=== PATIENT | male | born 1970 | race Caucasian/White ===

== ENCOUNTER 2016-10-26 20:52 | Emergency (ER) | payer OTHER ==
[~2016-10-26] VITALS: Ht 180.3 cm; Wt 126.7 kg
[~2016-10-26 20:52] MED LIST: ACET-2321 PO; AMOX875T2 PO; CIPR7.5D EACH EAR; DIPH25CA84 PO; LISI1TAB13
--- OUTSIDE RECORDS SUMMARY | 2016-10-26 20:56 | XMS REPORT | Continuity of Care Document ---
Author Author [facility] Organization [facility] Address Unknown Phone Unavailable Support Name Relationship Address Phone NYDIAJOSESITO CAMACHO APRN Caregiver [address] [place] [address] [place] [address] Unavailable JER BOURNE Next Of Kin [address] [phone] Insurance Providers Guarantor Lucy Bourne Address [address] [address] [place] [address] Email [email or web address] Payer [employer] Policy Number [id number] Subscriber's Name Lucy Bourne Delia Relationship 18 Self Group Number [id number] Chief Complaint and Reason for Visit Chief Complaint Throat Pain/Injury Reason for Visit [id number] Cough [id number] Pharyngitis Problems Active Problems Medical Problem Onset Date Status Atypical chest pain Unknown Acute Atypical chest pain Unknown Acute Costochondritis Unknown Acute Past Problems Medical Problem Onset Date Bilateral nonsuppurative otitis media Unknown Bilateral otitis externa Unknown Cough Unknown HTN (hypertension) Unknown Pharyngitis Unknown Medications Current Home Medications Medication Dose Units Route Directions Days Qty Instructions Start Date Acetaminophen (Tylenol) 325 Mg Tablet 1 Tab Oral Every 4 Hours Prn 30 Tablet 06/25/16 Amoxicillin 875 Mg Tablet 1 Tab Oral Every 12 Hours 10 Days 20 Tablet 06/25/16 Ciprofloxacin Hcl/Dexameth (Ciprodex Otic Suspension) 75 Drop/7.5 Ml Bottle 4 Drop Each Ear Twice A Day 7 Days 1 Bottle 06/25/16 Diphenhydramine Hcl (Benadryl) 25 Mg Capsule 1 Cap Oral Bedtime 30 Capsule 06/25/16 Lisinopril/Hydrochlorothiazide (Lisinopril-Hctz 20-25 Mg Tab) 1 Each Tablet 01/24/14 Social History Social History Problem Response Recorded Date/Time Onset Date Status Hx Alcohol Use Yes 01/24/2014 2:31am Not Applicable Not Applicable Tobacco Usage smoke 01/05/2014 11:30pm Not Applicable Not Applicable Hospital Discharge Instructions No hospital discharge instructions. Plan of Care Discharge Date 06/25/16 7:10pm Disposition 01 DISCHARGED HOME, SELF-CARE Condition at Discharge Stable Prescriptions See Medication Section Additional Instructions/Education Clinical examination does not suggest sinusitis, pneumonia, meningitis or streptococcal pharyngitis. Increase fluid intake. Enc good handwashing. Recommend OTC Mucinex DM, Afrin nasal spray (for no more than 5 days), per package instructions as need for cough/congestion. Recommend salt water gargles, Chloraseptic spray, throat lozenges for sore throat as needed. Saline nasal rinses may be beneficial 2 x a day. Recommend OTC Tylenol and/or Ibuprofen per package instructions as needed for fever, pain, and body aches. No aspirin. I do not feel that any further extensive workup is indicated. However the patient is counseled that should new symptoms develop or the symptoms worsen, further evaluation and testing may be warranted as those symptoms declare themselves and that followup is of vital importance. Symptoms should improve over the next 1-2 weeks. If symptoms get worse, spikes fever, inc cough or shortness of breath please follow up with primary care office or return to convenient care/ER for further evaluation. Discussed with patient diagnoses of hypertension and important thing on medications with routine follow-up. Refill provided for lisinopril/hydrochlorothiazide for 1 week. Information provided for him for local clinics and health ministries. He needs follow-up within the next 7 days. discussed and encouraged smoking cessation. Vital signs rechecked prior to her true blood pressure 151/102. SaO2 96%. Pulse 97. He is in no distress. Questions and concerns answered. Functional Status No functional status results. Allergies, Adverse Reactions, Alerts No known allergies. Immunizations No immunization records. Vital Signs Acute Vital Signs Vital Response Date/Time Temperature (Fahrenheit) 97.5 deg F (96.8 - 99.1) 06/25/2016 6:35pm Temperature (Calculated Celsius) 36.16216 degrees C (36.0 - 37.3) 06/25/2016 6:35pm Pulse Rate (adult) 96 bpm (60 - 100) 06/25/2016 6:50pm Respiratory Rate 24 breaths/min (10 - 20) 06/25/2016 6:35pm O2 Sat by Pulse Oximetry 97 % (90 - 100) 06/25/2016 6:35pm Blood Pressure 158/104 mm Hg 06/25/2016 6:50pm Height (Inches) 68.00 inches 06/25/2016 6:35pm Weight (Kilograms) 134.100 kg 06/25/2016 6:35pm Body Mass Index (BMI) 44.0 06/25/2016 6:35pm Results No known relevant diagnostic tests, laboratory data and/or discharge summary. Procedures No known history of procedures. Encounters Encounter Location Arrival/Admit Date Discharge/Depart Date Attending Provider Departed Emergency Room [facility] 06/25/16 6:27pm 06/25/16 7: 10pm JOSESITO STAFFORD APRN Recent Diagnosis
--- OUTSIDE RECORDS SUMMARY | 2016-10-26 20:56 | XMS REPORT | Continuity of Care Document ---
Author Author [facility] Organization [facility] Address Unknown Phone Unavailable Allergies Active Description Code Type Severity Reaction Onset Reported/Identified Relationship to Patient Clinical Status Yes No Known Food Allergies Food Allergy 10/11/2012 Yes No Known Food Allergies Food Allergy N/A N/A 09/04/2013 Medications Problems Date Dx Coded Attending Type Code Diagnosis Diagnosed By 08/24/2012 Dom Montilla MD Final 305.1 TOBACCO USE DISORDER 08/24/2012 Dom Montilla MD Final 380.10 INF OTITIS EXTERNA NOS 08/24/2012 Dom Montilla MD Final 382.9 OTITIS MEDIA NOS 08/24/2012 Dom Montilla MD Admitting 388.70 OTALGIA NOS 08/24/2012 Dom Montilla MD Final 401.9 HYPERTENSION NOS 09/30/2012 Shaw Smith DO Final 305.1 TOBACCO USE DISORDER 09/30/2012 Shaw Smith DO Final 338.19 ACUTE PAIN NEC 09/30/2012 Shaw Smith DO Final 401.9 HYPERTENSION NOS 09/30/2012 Shaw Smith DO Final 786.50 CHEST PAIN NOS 10/11/2012 Torey Latham MD Final 272.4 HYPERLIPIDEMIA NEC NOS 10/11/2012 Torey Latham MD Final 305.1 TOBACCO USE DISORDER 10/11/2012 Torey Latham MD Final 401.9 HYPERTENSION NOS 10/11/2012 Torey Latham MD Final 414.01 COR -QAWALANGIN VESSEL 10/11/2012 Torey Latham MD Admitting 786.50 CHEST PAIN NOS 10/11/2012 Torey Latham MD Final 786.59 CHEST PAIN NEC 09/04/2013 Torey Latham MD Final 305.1 TOBACCO USE DISORDER 09/04/2013 Torey Latham MD Final 401.9 HYPERTENSION NOS 09/04/2013 Torey Latham MD Final 429.9 HEART DISEASE NOS 09/04/2013 Torey Latham MD Final 786.50 CHEST PAIN NOS 09/04/2013 Torey Latham MD Admitting 786.59 CHEST PAIN NEC Procedures Results Encounters ACCT No. Visit Date/Time Discharge Status Pt. Type Provider Facility Loc./Unit Complaint [id number] 09/04/2013 18:18:00 2013 19:34:00 DIS Emergency Torey Latham MD [facility] [id number] 10/11/2012 23:45:00 2012 20:07:00 DIS Outpatient Torey Latham MD [facility] F4SE [id number] 09/30/2012 00:39:00 2012 01:55:00 DIS Emergency Shaw Smith DO [facility] [id number] 08/24/2012 10:32:00 2012 12:05:00 DIS Emergency Dom Montilla MD [facility] [place]
--- OUTSIDE RECORDS SUMMARY | 2016-10-26 20:56 | XMS REPORT | Continuity of Care Document ---
Author Author [facility] Organization [facility] Address Unknown Phone Unavailable Support Name Relationship Address Phone LUCY TRIMBLE MD Caregiver [address] [place] [address] Unavailable STEFFENJER Next Of Kin [address] [address] Insurance Providers Payer Name Policy Number Subscriber Name Relationship Self Pay Lucy Bourne 18 Self Problems Medical Problems Problem Onset Date Status Atypical chest pain Unknown Active Costochondritis Unknown Active Atypical chest pain Unknown Active Medications Medication Dose Route Sig Days/Qty Instructions Order Date Discontinued Date Status Omeprazole Magnesium 01/24/14 Active Lisinopril/Hydrochlorothiazide 01/24/14 Active Famotidine 40 Mg PO DAILY 60 Qty 01/24/14 Active Social History Social History Problem Response Recorded Date/Time Smoking Status Current every day smoker 01/24/2014 2:31am Hx Alcohol Use Yes 01/24/2014 2:31am Hospital Discharge Instructions No hospital discharge instructions. Plan of Care No plan of care. Functional Status Query Response Date Recorded Physical Hygiene Self January 24, 2014 2:31am Disabilities None January 24, 2014 2:31am Devices Used None January 24, 2014 2:31am Dressing Self January 24, 2014 2:31am Ambulation Self January 24, 2014 2:31am Diet Self January 24, 2014 2:31am Mental Status Alert January 24, 2014 3:43am Disabilities None January 24, 2014 2:31am Devices Used None January 24, 2014 2:31am Physical Hygiene Self January 24, 2014 2:31am Dressing Self January 24, 2014 2:31am Ambulation Self January 24, 2014 2:31am Diet Self January 24, 2014 2:31am Allergies, Adverse Reactions, Alerts Allergen Type Severity Reaction Status Last Updated No Known Allergies Active 01/24/14 Immunizations No immunization records. Vital Signs Acute Vital Signs Vital Response Date/Time Temperature (Fahrenheit) 97.4 deg F (96.8 - 99.1) Temperature (Calculated Celsius) 36.59554 degrees C (36.0 - 37.3) Pulse Rate (adult) 90 bpm (60 - 100) Respiratory Rate 20 breaths/min (10 - 20) O2 Sat by Pulse Oximetry 96 % (90 - 100) Blood Pressure 147/98 mm Hg Height 5 ft 11 in Weight 240 lb Body Mass Index 33.0 kg/m^2 Results Test Source Date Result Interp. Ref. Range Comments Alanine Aminotransferase (ALT/SGPT) January 24, 2014 2:20am 39 U/L N 21- 72 Albumin January 24, 2014 2:20am 4.4 G/DL N 3.5-5.0 Albumin/Globulin Ratio January 24, 2014 2:20am 1.3 RATIO N 1.1-2.2 Alkaline Phosphatase January 24, 2014 2:20am 107 U/L N 38-126 Anion Gap January 24, 2014 2:20am 16 MEQ/L H 5-15 Aspartate Amino Transf (AST/SGOT) January 24, 2014 2:20am 25 U/L N 17-59 BUN/Creatinine Ratio January 24, 2014 2:20am 15 RATIO N 6-26 Band Neutrophils # January 05, 2014 10:45pm 0.1 T/MM3 - Band Neutrophils % January 05, 2014 10:45pm 1.0 % N 0-6 Basophils # (Manual) January 24, 2014 2:20am 0.1 T/MM3 N 0-0.2 Basophils % (Manual) January 24, 2014 2:20am 1.0 % N 0-2 Blood Urea Nitrogen January 24, 2014 2:20am 15.0 MG/DL N 9-20 Calcium Level January 24, 2014 2:20am 9.3 MG/DL N 8.4-10.2 Calculated Osmolality January 24, 2014 2:20am 280 MOSM/KG N 261-280 Carbon Dioxide Level January 24, 2014 2:20am 25 MEQ/L N 22-30 Chloride Level January 24, 2014 2:20am 104 MEQ/L N 98-107 Creatinine January 24, 2014 2:20am 1.0 MG/DL N 0.8-1.5 Eosinophils # (Manual) January 05, 2014 10:45pm 0.3 T/MM3 N 0-0.5 Eosinophils % (Manual) January 05, 2014 10:45pm 2.0 % N 0-4 Globulin January 24, 2014 2:20am 3.3 G/DL N 2.4-3.6 Glucose Level January 24, 2014 2:20am 92 MG/DL N 75-110 Hematocrit January 24, 2014 2:20am 47.5 % N 41-53 Hemoglobin January 24, 2014 2:20am 16.1 GM/DL N 13.5-17.5 Lipase January 24, 2014 2:20am 75 U/L N 23-300 Lymphocytes # (Manual) January 24, 2014 2:20am 3.4 T/MM3 N 1-4.8 Lymphocytes % (Manual) January 24, 2014 2:20am 25.0 % N 23-45 Mean Corpuscular Hemoglobin January 24, 2014 2:20am 31.1 UUG N 26-34 Mean Corpuscular Hemoglobin Concent January 24, 2014 2:20am 33.9 GM/DL N 31-37 Mean Corpuscular Volume January 24, 2014 2:20am 91.9 UM3 N 80-100 Mean Platelet Volume January 24, 2014 2:20am 11.1 UM3 N 9.4-12.4 Monocytes # (Manual) January 24, 2014 2:20am 0.1 T/MM3 N 0-0.8 Monocytes % (Manual) January 24, 2014 2:20am 1.0 % N 0-9.0 Neutrophils # (Manual) January 24, 2014 2:20am 9.5 T/MM3 H 1.8-7.7 Neutrophils % (Manual) January 24, 2014 2:20am 69.0 % H 33-66 Platelet Count January 24, 2014 2:20am 330 T/MM3 N 130-400 Potassium Level January 24, 2014 2:20am 3.8 MEQ/L N 3.6-5 RDW Standard Deviation January 24, 2014 2:20am 42.6 FL N 36.9-50.2 Red Blood Count January 24, 2014 2:20am 5.17 M/MM3 N 4.50-5.90 Sodium Level January 24, 2014 2:20am 145 MEQ/L H 134-144 Total Bilirubin January 24, 2014 2:20am 0.20 MG/DL N 0.20-1.30 Total Protein January 24, 2014 2:20am 7.7 G/DL N 6.3-8.2 Troponin I January 24, 2014 2:20am < 0.012 ng/ml 0-0.12 White Blood Count January 24, 2014 2:20am 13.7 T/MM3 H 4.5-11.0 Chemistry Specimen Hemolysis January 24, 2014 2:20am < 15 0-25 0-25: No Hemolysis.26-70: Slight Hemolysis - can falsely elevate K and Urine Protein. 71-285: Moderate Hemolysis - can falsely elevate K, Troponin I, CA 19-9, PTH, CSF GLucose, and Urine Protein, and can falsely decrease Phenytoin. 286-999: Gross Hemolysis - can falsely elevate K, Troponin I, CA 19-9, PTH, CSF Glucose, and Urine Protine, and can falsely decrease Phenytoin. Recommend specimen recollection. Turbidity January 24, 2014 2:20am < 20 0-20 Reactive Lymphocytes % January 24, 2014 2:20am 4.0 % H 0-0 Glomerular Filtration Rate Calc January 24, 2014 2:20am 82 - Reactive Lymphocytes # January 24, 2014 2:20am 0.5 T/MM3 H 0-0 Icterus Index January 24, 2014 2:20am < 2 0-7 Name: LUCY BOURNE Unit #: [id number] : 1970 Sex: M Loc / Svc: ED DOS: 01/05/14 Signed Report #: [id number] DIAGNOSTIC IMAGING REPORT TYPE OF EXAM: CT CERVICAL SPINE W/O CONTRAST Dictated By: TIKA KEENAN MD INDICATION: ITS.REASON: FALL, MIDLINE NECK PAIN CT CERVICAL SPINE W/O CONTRAST: Comparison: None Technique: Axial CT images through the cervical spine were performed without contrast. Coronal and sagittal reformatted images were also obtained. FINDINGS: The alignment of the cervical spine is normal. There is no evidence of acute fracture or subluxation of the cervical spine. The facet joints are well aligned with preservation of the intervertebral disk and facet joints. The atlantoaxial articulation, dens, and upper cervical spine demonstrate no subluxation. There is no evidence of significant spinal stenosis , foraminal compromise, or significant disk herniation. The paraspinal soft tissues and spinal canal appear unremarkable. Mastoid fluid. IMPRESSION: No acute traumatic abnormality of the cervical spine. There is a preliminary report by virtual radiologic. . Procedures Procedure Status Date Provider(s) THER/PROPH/DIAG INJ IV PUSH completed 01/05/14 LUCY TRIMBLE MD Encounters Encounter Location Date/Time Departed Emergency Room [facility] 01/24/14 2:31am Departed Emergency Room [facility] 01/05/14 10:57pm Recent Diagnosis
--- OUTSIDE RECORDS SUMMARY | 2016-10-26 20:56 | XMS REPORT | Continuity of Care Document ---
Author Author [facility] Organization [facility] Address Unknown Phone Unavailable Support Name Relationship Address Phone JUAN TRIMBLE MD Caregiver [address] [place] [address] Unavailable BOURNEJER RAPP Next Of Kin [address] [address] Insurance Providers Payer Name Policy Number Subscriber Name Relationship Self Pay Juan Bourne 18 Self Problems Medical Problems Problem Onset Date Status Atypical chest pain Unknown Active Costochondritis Unknown Active Medications No known medications. Social History Social History Problem Response Recorded Date/Time Smoking Status Current every day smoker 01/05/2014 11:01pm Hospital Discharge Instructions No hospital discharge instructions. Plan of Care No plan of care. Functional Status Query Response Date Recorded Physical Hygiene Self January 05, 2014 11:01pm Disabilities None January 05, 2014 11:01pm Devices Used None January 05, 2014 11:01pm Dressing Self January 05, 2014 11:01pm Ambulation Self January 05, 2014 11:01pm Diet Self January 05, 2014 11:01pm Mental Status Alert January 06, 2014 12:41am Disabilities None January 05, 2014 11:01pm Devices Used None January 05, 2014 11:01pm Physical Hygiene Self January 05, 2014 11:01pm Dressing Self January 05, 2014 11:01pm Ambulation Self January 05, 2014 11:01pm Diet Self January 05, 2014 11:01pm Allergies, Adverse Reactions, Alerts No known allergies. Immunizations No immunization records. Vital Signs Acute Vital Signs Vital Response Date/Time Temperature (Fahrenheit) 98.0 deg F (96.8 - 99.1) Temperature (Calculated Celsius) 36.00841 degrees C (36.0 - 37.3) Pulse Rate (adult) 86 bpm (60 - 100) Respiratory Rate 19 breaths/min (10 - 20) O2 Sat by Pulse Oximetry 97 % (90 - 100) Blood Pressure 124/86 mm Hg Height 5 ft 11 in Weight 272 lb Body Mass Index 38.0 kg/m^2 Results Test Source Date Result Interp. Ref. Range Comments Alanine Aminotransferase (ALT/SGPT) January 05, 2014 10:45pm 35 U/L N 21- 72 Albumin January 05, 2014 10:45pm 3.7 G/DL N 3.5-5.0 Albumin/Globulin Ratio January 05, 2014 10:45pm 1.2 RATIO N 1.1-2.2 Alkaline Phosphatase January 05, 2014 10:45pm 94 U/L N 38-126 Anion Gap January 05, 2014 10:45pm 12 MEQ/L N 5-15 Aspartate Amino Transf (AST/SGOT) January 05, 2014 10:45pm 22 U/L N 17-59 BUN/Creatinine Ratio January 05, 2014 10:45pm 13 RATIO N 6-26 Band Neutrophils # January 05, 2014 10:45pm 0.1 T/MM3 - Band Neutrophils % January 05, 2014 10:45pm 1.0 % N 0-6 Blood Urea Nitrogen January 05, 2014 10:45pm 10.0 MG/DL N 9-20 Calcium Level January 05, 2014 10:45pm 9.0 MG/DL N 8.4-10.2 Calculated Osmolality January 05, 2014 10:45pm 274 MOSM/KG N 261-280 Carbon Dioxide Level January 05, 2014 10:45pm 25 MEQ/L N 22-30 Chloride Level January 05, 2014 10:45pm 105 MEQ/L N 98-107 Creatinine January 05, 2014 10:45pm 0.8 MG/DL N 0.8-1.5 Eosinophils # (Manual) January 05, 2014 10:45pm 0.3 T/MM3 N 0-0.5 Eosinophils % (Manual) January 05, 2014 10:45pm 2.0 % N 0-4 Globulin January 05, 2014 10:45pm 3.2 G/DL N 2.4-3.6 Glucose Level January 05, 2014 10:45pm 128 MG/DL H 75-110 Hematocrit January 05, 2014 10:45pm 45.4 % N 41-53 Hemoglobin January 05, 2014 10:45pm 15.1 GM/DL N 13.5-17.5 Lipase January 05, 2014 10:45pm 78 U/L N 23-300 Lymphocytes # (Manual) January 05, 2014 10:45pm 3.3 T/MM3 N 1-4.8 Lymphocytes % (Manual) January 05, 2014 10:45pm 26.0 % N 23-45 Mean Corpuscular Hemoglobin January 05, 2014 10:45pm 30.6 UUG N 26-34 Mean Corpuscular Hemoglobin Concent January 05, 2014 10:45pm 33.3 GM/DL N 31-37 Mean Corpuscular Volume January 05, 2014 10:45pm 91.9 UM3 N 80-100 Mean Platelet Volume January 05, 2014 10:45pm 10.8 UM3 N 9.4-12.4 Monocytes # (Manual) January 05, 2014 10:45pm 0.9 T/MM3 H 0-0.8 Monocytes % (Manual) January 05, 2014 10:45pm 7.0 % N 0-9.0 Neutrophils # (Manual) January 05, 2014 10:45pm 8.1 T/MM3 H 1.8-7.7 Neutrophils % (Manual) January 05, 2014 10:45pm 64.0 % N 33-66 Platelet Count January 05, 2014 10:45pm 320 T/MM3 N 130-400 Potassium Level January 05, 2014 10:45pm 3.5 MEQ/L L 3.6-5 RDW Standard Deviation January 05, 2014 10:45pm 43.5 FL N 36.9-50.2 Red Blood Count January 05, 2014 10:45pm 4.94 M/MM3 N 4.50-5.90 Sodium Level January 05, 2014 10:45pm 142 MEQ/L N 134-144 Total Bilirubin January 05, 2014 10:45pm 0.10 MG/DL L 0.20-1.30 Total Protein January 05, 2014 10:45pm 6.9 G/DL N 6.3-8.2 Troponin I January 05, 2014 10:45pm < 0.012 ng/ml 0-0.12 White Blood Count January 05, 2014 10:45pm 12.6 T/MM3 H 4.5-11.0 Chemistry Specimen Hemolysis January 05, 2014 10:45pm < 15 0-25 0-25: No Hemolysis.26-70: Slight [...] decrease Phenytoin. Recommend specimen recollection. Turbidity January 05, 2014 10:45pm < 20 0-20 Glomerular Filtration Rate Calc January 05, 2014 10:45pm 106 - Icterus Index January 05, 2014 10:45pm < 2 0-7 Procedures No known history of procedures. Encounters Encounter Location Date/Time Departed Emergency Room [facility] 01/05/14 10:57pm Recent Diagnosis
--- OUTSIDE RECORDS SUMMARY | 2016-10-26 20:56 | XMS REPORT ---
Author Author [facility] Organization Unknown Address Unknown Phone Unavailable Allergies, Adverse Reactions, Alerts * No Latex Allergy. * No IV Contrast Allergy. * No Known Food Allergies. Problems No relevant problems exist. Procedures No Procedures Documented. Medication Medication reconciliation has not been performed. Results LAB--CHEMISTRY from 09/30/2012 12:47 AMAnion Gap 7 (3-20 ) Albumin 3.3 g/dL L (3.5-4.8 g/dL) Alkaline Phosphatase 73 U/L (26-104 U/L) ALT (SGPT) 21 U/L (17-63 U/L) AST (SGOT) 15 U/L (15-41 U/L) Bilirubin Total 0.7 mg/dL (0.2-1.2 mg/dL) BUN 9 mg/dL (4-20 mg/dL) Calcium 8.8 mg/dL (8.6-10.0 mg/dL) Chloride 105 mEq/L (99-109 mEq/L) CO2 26 mEq/L (22-32 mEq/L) Creatinine 1.06 mg/dL (0.64-1.27 mg/dL) eGFR >60 (>60- ) Globulin 3.4 g/dL (1.9-4.3 g/dL) Glucose 110 mg/dL H (70-100 mg/dL) Potassium 3.9 mEq/L (3.6-5.1 mEq/L) Sodium 138 mEq/L (136-144 mEq/L) Protein 6.7 g/dL (6.1-7.9 g/dL) Troponin <0.06 ng/mL (-<0.06 ng/mL) LAB--HEMATOLOGY from 09/30/2012 12:47 AMAbsolute Basophils 0.07 THOUS (0.00-0.20 THOUS) Absolute Eosinophils 0.29 THOUS (0.00-0.50 THOUS) Absolute Lymphocytes 3.86 THOUS H (0.80-3.30 THOUS) Absolute Monocytes 1.11 THOUS H (0.30-1.00 THOUS) Absolute Neutrophils 8.63 THOUS H (1.90-7.00 THOUS) HCT 47.6 % (42.0-52.0 %) HGB 16.1 g/dl (14.0-18.0 g/dl) MCH 31.0 pg (27.0-32.0 pg) MCHC 33.8 g/dL (32.0-36.0 g/dL) MCV 91.5 fL (82.0-99.0 fL) MPV 10.9 fL (9.4-12.3 fL) Platelet Count 311 K/uL (150-400 K/uL) RBC 5.20 M/uL (4.60-6.20 M/uL) RDW 12.5 % (11.5-14.5 %) WBC 14.0 K/uL H (4.8-10.8 K/uL) Basophils 1 % (0-2 %) Eosinophils 2 % (0-4 %) Immature Granulocytes 0.4 % (0.0-1.0 %) Lymphocytes 28 % (20-46 %) Monocytes 8 % (4-11 %) Nucleated RBC Automated 0.0 /100 WBC (0 /100 WBC) Differential Scanned Slide Neutrophils 62 % (51-75 %)
[2016-10-26 21:35] VITALS: Ht 180.3 cm; Wt 126.7 kg
--- NOTE | 2016-10-26 21:53 | NUR ---
STATUS PT IS BROUGHT BACK IN ROOM. PT IS ABLE TO TRANSFER FROM W/C TO CART BY HIMSELF
--- OUTSIDE RECORDS SUMMARY | 2016-10-26 22:02 | XMS REPORT | CCD ---
Author Author [facility], [facility] Organization Unknown Address Unknown Phone Unavailable [...]
--- OUTSIDE RECORDS SUMMARY | 2016-10-26 22:02 | XMS REPORT | Continuity of Care Document ---
Author Author [facility] Organization [facility] Address Unknown Phone Unavailable Allergies Active Description [...] 10/11/2012 Torey Latham MD Final 414.01 COR -CHILKAT VESSEL 10/11/2012 Torey Latham MD Admitting 786.50 [...] Status Pt. Type Provider Facility Loc./Unit Complaint [id number] 09/04/2013 18:18:00 2013 19:34:00 DIS Emergency Torey Latham MD [facility] [id number] 10/11/2012 23:45:00 2012 20:07:00 DIS Outpatient Torey Latham MD [facility] F4SE [id number] 09/30/2012 00:39:00 2012 01:55:00 DIS Emergency Shaw Smith DO [facility] [id number] 08/24/2012 10:32:00 2012 12:05:00 DIS Emergency Dom Montilla MD [facility] [place]
--- OUTSIDE RECORDS SUMMARY | 2016-10-26 22:02 | XMS REPORT | Continuity of Care Document ---
Author Author [facility] Organization [facility] Address Unknown Phone Unavailable Support Name Relationship Address Phone JUAN TRIMBLE MD Caregiver [address] [place] [address] Unavailable BOURNEJER RAPP Next Of Kin [address] [address] Insurance Providers Payer Name Policy Number Subscriber [...] F (96.8 - 99.1) Temperature (Calculated Celsius) 36.87496 degrees C (36.0 - 37.3) Pulse Rate [...] Encounters Encounter Location Date/Time Departed Emergency Room [facility] 01/05/14 10:57pm Recent Diagnosis
--- OUTSIDE RECORDS SUMMARY | 2016-10-26 22:02 | XMS REPORT | Continuity of Care Document ---
Author Author [facility] Organization [facility] Address Unknown Phone Unavailable Support Name Relationship Address Phone LUCY TRIMBLE MD Caregiver [address] [place] [address] Unavailable STEFFENJER Next Of Kin [address] [address] Insurance Providers Payer Name Policy Number Subscriber [...] F (96.8 - 99.1) Temperature (Calculated Celsius) 36.34188 degrees C (36.0 - 37.3) Pulse Rate [...] 2 0-7 Name: LUCY BOURNE Unit #: [id number] : 1970 Sex: M Loc / Svc: ED DOS: 01/05/14 Signed Report #: [id number] DIAGNOSTIC IMAGING REPORT TYPE OF EXAM: CT [...] Encounters Encounter Location Date/Time Departed Emergency Room [facility] 01/24/14 2:31am Departed Emergency Room [facility] 01/05/14 10:57pm Recent Diagnosis
[2016-10-26 22:37] LABS: BASOPHILS # (AUTO) 0.1 T/MM3 (0-0.2); BASOPHILS % (AUTO) 0.6 % (0-2); EOSINOPHILS # (AUTO) 0.3 T/MM3 (0-0.5); EOSINOPHILS % (AUTO) 2.4 % (0-4); HCT - HEMATOCRIT 45.6 % (41-53); HGB - HEMOGLOBIN 15.2 GM/DL (13.5-17.5); IMMATURE GRANULOCYTE # (AUTO) 0.03 T/MM3 (0.00-0.03); IMMATURE GRANULOCYTE % (AUTO) 0.3 % (0.0-0.5); LYMPHOCYTES # (AUTO) 3.5 T/MM3 (1-4.8); LYMPHOCYTES % (AUTO) 30.7 % (23-45); MEAN CORPUSCULAR HGB CONC(MCHC 33.3 GM/DL (31-37); MEAN CORPUSCULAR VOLUME 90.1 UM3 (80-100); MEAN PLATELET VOLUME 10.5 UM3 (9.4-12.4); MONOCYTES % (AUTO) 8.6 % (0-9.0); NEUTROPHILS #(AUTO)-ABSOLUTE 6.4 T/MM3 (1.8-7.7); NEUTROPHILS % (AUTO) 57.4 % (33-66); RED BLOOD COUNT 5.06 M/MM3 (4.50-5.90); WBC - WHITE BLOOD COUNT 11.2 T/MM3 (4.5-11.0)
[2016-10-26 22:45] LABS: ALBUMIN 4.4 G/DL (3.5-5.0); ALBUMIN/GLOBULIN RATIO 1.4 RATIO (1.1-2.2); ALKALINE PHOSPHATASE 90 U/L (38-126); ALT (SGPT) 55 U/L (21-72); ANION GAP 16 MEQ/L (5-15); AST (SGOT) 24 U/L (17-59); BUN/CREATININE RATIO 9 RATIO (6-26); CALCIUM 9.2 MG/DL (8.4-10.2); CHLORIDE 103 MEQ/L (98-107); CO2 - CARBON DIOXIDE 28 MEQ/L (22-30); CREATININE 0.9 MG/DL (0.8-1.5); GLOMERULAR FILTRATION RATE 91; GLUCOSE 95 MG/DL (75-110); LIPASE 65 U/L (23-300); SODIUM 147 MEQ/L (134-144); TOTAL PROTEIN 7.6 G/DL (6.3-8.2)
--- NOTE | 2016-10-26 22:58 | NUR ---
CT Patient out to CT
--- NOTE | 2016-10-26 23:15 | NUR ---
CT Patient returns
[2016-10-26] MEDS ORDERED: NORMAL SALINE 1,000 ML IV ONE (23:30)
[2016-10-26 23:53] LABS: BLOOD, URINE NEGATIVE (NEGATIVE); COLOR,URINE YELLOW (YELLOW); LEUKOCYTE ESTERASE ,URINE NEGATIVE (NEGATIVE); NITRITE,URINE NEGATIVE (NEGATIVE); UROBILINOGEN,URINE 0.2 EU/DL (NORMAL)
[2016-10-26] MEDS ORDERED: HYDR-4246 PO (23:58)
[2016-10-26] MEDS ORDERED: CYCL-375 PO (23:58)
--- NOTE | 2016-10-26 23:58 | ERPDOC ---
Departure Disposition Decision Date: October 26, 2016 Disposition Decision Time: 23:40 Disposition: 01 DISCHARGED HOME, SELF-CARE Impression Impression Impression: Primary Impression: Back pain Back pain location: back pain in unspecified location Chronicity: chronic Back pain laterality: right Qualified Codes: G89.29 - Other chronic pain; M54.9 - Dorsalgia, unspecified Severity: Mild Condition: Improved Seen By: Physician only Referrals: YOON FISHER MD (Family) 2 Days Patient Instructions: Back Pain (ED) Problems/Meds/Labs Reviewed?: Yes Medications reviewed and manag: Yes Follow up care ordered?: Yes Mental Status: Alert, Oriented Scripts Cyclobenzaprine HCl (Cyclobenzaprine HCl) 10 Mg Tablet 10 MG PO TID Y for MUSCLE SPASM for 5 Days, #15 TAB 0 Refills Prov: SHAHLA MOCK DO 10/26/16 Hydrocodone/Acetaminophen ([place] 5-325 Tablet) 5-325 Tablet 1 TAB PO Q4HR Y for PAIN for 3 Days, #18 TAB 0 Refills Prov: SHAHLA MOCK DO 10/26/16 HPI - General Medical General Chief Complaint: Back Pain or Injury Stated Complaint: BACK PAIN Time Seen by Provider: 21:57 Source: patient Exam Limitations: no limitations HPI - General Medical Initial Comments 46-year-old male presents to emergency department with a chief complaint of back pain. Patient notes that he has been experiencing right sided flank discomfort for the past 3-4 months. He denies any trauma or injury. Patient describes the pain as sharp. Pain is moderate. He notes that the pain improves with ibuprofen and increases with movement of the upper body. No radiation of pain. No other complaints or associated symptoms. Patient was at home when the symptoms began. Symptoms have been persistent in nature since onset. Patient denies any numbness, tingling, focal weakness, fever, chills, saddle anesthesia, loss of bowel or bladder control, anticoagulation, abdominal pain, IV drug abuse, recent procedures on the spine or other warning signs of back- pain. Occurred At: home Onset: Constant Allergies: Coded Allergies: No Known Allergies (Unverified , 01/24/14) Past History Past Medical History Metabolic: hypertension Hx Echocardiogram: No GI: GERD Surgical History Denies Surgeries General: hernia Cardiac: cardiac cath Family History Family History: Negative Social History Smoking Status: Current every day smoker # of Years: 35 Second Hand Exposure: No Substance Use Type: does not use Alcohol Intake: occasionally Review of Systems Constitutional Constitutional: DENIES: chills, fever Eyes General: DENIES: erythema, exudate Lids/Accessories: DENIES: erythema, swelling Vision: DENIES: acuity, blurring ENMT Ears: DENIES: drainage, erythema Hearing: DENIES: hearing loss Balance: DENIES: ataxia, falling to one side Sinuses: DENIES: congestion, pain Nose: DENIES: nosebleeds, pain Mouth/Throat: DENIES: painful swallowing, sore throat Teeth: DENIES: pain Jaw: DENIES: pain Cardiovascular Cardiac: DENIES: chest pain, dyspnea on exertion Rhythm/Rate: DENIES: irregular beat, palpitations Vascular: DENIES: pedal edema, unilateral swelling Pulmonary Respiratory: DENIES: cough, dyspnea, pleuritic chest pain, sputum GI Upper Abdomen: DENIES: nausea, pain, vomiting Lower Abdomen: DENIES: diarrhea, pain General: DENIES: dysuria, frequency Musculoskeletal General: tenderness, DENIES: joint pain Integumentary Skin: DENIES: itching, rash Neurological General: DENIES: change in strength, headache, numbness, weakness Psychiatric Psychiatric: DENIES: emotional instability, suicidal ideation/attempt Endocrine Endocrine: DENIES: polydipsia, polyphagia Hematologic/Lymphatic Hematologic/Lymphatic: DENIES: frequent nosebleeds, lymphadenopathy Allergic/Immunological Allergic/Immunoligical: DENIES: allergic reactions, hives Physical Exam General General Nourishment: well nourished, well developed, appears stated age, no acute distress, adult General Body Habitus: well groomed Vitals and Pain First Documented Vital Signs Date Time Temp Pulse Resp B/P Pulse Ox O2 Delivery O2 Flow Rate FiO2 10/26/16 21:35 98.6 87 20 157/100 96 Room Air Weight: Kilograms: 126.700 Height (feet): 5 Height (inches): 11.00 Triage Pain Scale: RN VS reviewed by Provider: Yes Normal Exams: Head: Normocephalic w/o trauma Eyes: Pupils are PERRLA w/ EOMI, No scleral icterus, irritation, or foreign bodies noted ENMT: No facial trauma, nasal exudates, pharyngeal erythema, or exudates are noted Dental: No fractured, loose, or missing teeth noted Neck: Full range of motion, without adenopathy, JVD, bruits or thyromegaly Chest/Resp: Clear all ocampo, with good airflow, and symmetry bilaterally CV: Regular rate and rhythm, without murmur or gallop, Pulses 2+ all extremities, capillary refill, <2 seconds all ext., no pedal edema noted Abdomen: Bowel sounds positive, soft, non-tender, non-distended, no hepatosplenomegaly, masses or bruits noted Lymphatic: No lymphadenopathy, or lymphedema noted Musculoskeletal: No tenderness, or deformity noted, good range of motion, all extremities Integumentary: No rashes, hives, or bruising noted, hair and nails, without abnormality Neurologic: Patient is alert, and oriented, cranial nerves, motor/sensory/ cerebellar, exams w/o gross deficits, to observation Psychiatric: Patient exhibits, appropriate attention, emotion and affect Musculoskeletal (brief) Comments No midline tenderness or deformity of the cervical/thoracic/lumbar spine. No CVA tenderness. Differential Diagnoses Considering: Other (kidney stone/muscle spasm/back pain/muscle strain) Progress Results/Orders Orders Procedure Category Date Status Time Cbc W/Auto LAB 10/26/16 Complete Diff-Reflex Manual Cmp - Comprehensive LAB 10/26/16 Complete Metabolic Lipase LAB 10/26/16 Complete Ua, Dip Wreflex LAB 10/26/16 Complete Microsc & Harvester Operator 22:07 Ct Thoracic Spine W/O CT 10/26/16 Logged Contrast 22:07 Ct Abd/Pelvis W/O CT 10/26/16 Logged Contrast 22:07 Ct Lumbar Spine W/O CT 10/26/16 Logged Contrast 22:07 EKG EKG 10/26/16 Taken Troponin I W LAB 10/26/16 Complete Hemolysis Index Normal Saline (Normal PHA 10/26/16 In Process Saline Iv) 23:30 Lab Results Laboratory Tests Test 10/26/16 22:32 10/26/16 23:43 White Blood Count 11.2T/MM3 Red Blood Count 5.06M/MM3 Hemoglobin 15.2GM/DL Hematocrit 45.6% Mean Corpuscular Volume 90.1UM3 Mean Corpuscular Hemoglobin 30.0UUG Mean Corpuscular Hemoglobin Concent 33.3GM/DL RDW Standard Deviation 40.7FL Platelet Count 336T/MM3 Mean Platelet Volume 10.5UM3 Immature Granulocyte % (Auto) 0.3% Neutrophils (%) (Auto) 57.4% Lymphocytes (%) (Auto) 30.7% Monocytes (%) (Auto) 8.6% Eosinophils (%) (Auto) 2.4% Basophils (%) (Auto) 0.6% Absolute Immature Granulocyte (auto 0.03T/MM3 Absolute Neutrophils (auto) 6.4T/MM3 Absolute Lymphocytes (auto) 3.5T/MM3 Absolute Monocytes (auto) 1.0T/MM3 Absolute Eosinophils (auto) 0.3T/MM3 Absolute Basophils (auto) 0.1T/MM3 Turbidity < 20 Sodium Level 147MEQ/L Potassium Level 4.0MEQ/L Chloride Level 103MEQ/L Carbon Dioxide Level 28MEQ/L Anion Gap 16MEQ/L Blood Urea Nitrogen 8.0MG/DL Creatinine 0.9MG/DL Glomerular Filtration Rate Calc 91 BUN/Creatinine Ratio 9RATIO Glucose Level 95MG/DL Calculated Osmolality 280MOSM/KG Calcium Level 9.2MG/DL Total Bilirubin 0.40MG/DL Icterus Index < 2 Aspartate Amino Transf (AST/SGOT) 24U/L Alanine Aminotransferase (ALT/SGPT) 55U/L Alkaline Phosphatase 90U/L Troponin I < 0.012ng/ml Total Protein 7.6G/DL Albumin 4.4G/DL Globulin 3.2G/DL Albumin/Globulin Ratio 1.4RATIO Lipase 65U/L Chemistry Specimen Hemolysis < 15 Urine Collection Type Cleancatch-midstream Urine Color Yellow Urine Turbidity Clear Urine pH 5.5 Urine Specific [place] 1.025 Urine Protein Negative Urine Glucose (UA) Negative Urine Ketones Negative Urine Blood Negative Urine Nitrite Negative Urine Bilirubin Negative Urine Urobilinogen 0.2EU/DL Urine Leukocyte Esterase Negative Urinalysis Comment Microscopic not ind. Medications Current ED Medications Sodium Chloride (Normal Saline IV) 1,000 ml @ 999 mls/hr Q1H1M ONCE IV ; Start 10/26/16 at 23:30; Stop 10/27/16 at 00:30 Progress Progress Labs / imaging were discussed in detail with the patient and family and questions are answered. Patient declined offered analgesic pain medication. Patient declined IV hydration. Patient is discharged home in improved condition. Patient is to follow up as instructed. Patient is to return to the emergency department if his condition worsens or changes in any manner. Patient is in agreement with the current plan of management. Prescriptions for [place] and Flexeril are provided. Patient is to continue using Motrin over-the- counter as needed for anti-inflammatory pain control. Patient is to follow up as instructed. EKG EKG : Rate: 60-100 Rhythm: sinus Veteran: normal QRS: normal Intervals: normal ST/T: normal Interpreted by: signing physician CT CT : CT: Abd/Pelvis no contrast Interpretation: Normal (CT Thoracic / Lumbar Spine: Negative. ) SHAHLA MOCK DO October 26, 2016 23:58
[2016-10-27 00:05] VITALS: BP 145/84; PULSE 79; RESP 18; TEMP 98.6; O2SAT 97
--- NOTE | 2016-10-27 08:09 | DI ---
CT ABDOMEN AND PELVIS WITHOUT CONTRAST: INDICATION: ITS.REASON: pain Abdominal pain Automated Exposure Control and Iterative Reconstruction dose reducing techniques were utilized. COMPARISON: None. CT ABDOMEN: Included portions of the lung bases are clear. The upper abdominal structures are unremarkable in contour. There is mild fatty infiltration of the liver, with some fatty sparing adjacent to the gallbladder fossa. The kidneys are symmetric in size and shape without hydronephrosis or perinephric stranding. There is no definite intrarenal nonobstructing urinary calculus. CT PELVIS: A normal appendix is identified. There is mild distal colonic diverticulosis without evidence of diverticulitis. There is no pelvic sidewall adenopathy. No free fluid. No definite bony destructive process. No definite evidence for a distal ureteral obstructing calculus. IMPRESSION: No definite nephrolithiasis or evidence for obstructing ureteral calculus. No evidence for infectious or inflammatory process. No evidence for mass or adenopathy. .
--- NOTE | 2016-10-27 08:13 | DI ---
Indication: ITS.REASON: pain PROCEDURE: CT THORACIC SPINE W/O CONTRAST: Encounter: Initial Automated Exposure Control and Iterative Reconstruction dose reducing techniques were utilized. Comparison: None Findings: There is some respiratory motion artifact in the upper thoracic spine. There is moderate degenerative disc disease without acute fracture. No paraspinal hematoma. There is some posterior spurs centrally and just to the right of midline at T6-7, and T7-T8 that flattens the ventral thecal sac. No spinal canal stenosis. Impression: No definite displaced fracture or bony destructive process. Moderate degenerative disc disease with posterior spurs at T6-T7 and T7-T8. .
--- NOTE | 2016-10-27 08:18 | DI ---
Comparison: None Technique: CT lumbar spine without IV contrast Automated Exposure Control and Iterative Reconstruction dose reducing techniques were utilized. FINDINGS: There is mild degenerative disc disease with prominent anterior hypertrophic bony spurring. The alignment of the lumbar spine is normal for the patient's age. There are age appropriate degenerative changes within the intervertebral disks and facet joints in the lower lumbar region. The paraspinal soft tissues and spinal canal are otherwise without identified abnormality. There is ankylosis of the sacroiliac joints. Segmental analysis: There are multilevel fairly broad-based disc changes and there is moderate posterior facet arthropathy that probably contributes to spinal canal stenosis at L3-4 and L4-5. T12-L1: Demonstrates no definite focal disc extrusion or protrusion. L1-L2: Demonstrates no focal disc extrusion or protrusion. There is a probable mild spinal canal stenosis there is probable mild left greater than right neural foraminal encroachment. L2-L3: Demonstrates no focal disc extrusion or protrusion. There is a broad-based disc bulge with probable mild spinal canal stenosis and probable mild right greater than left neural foraminal encroachment. L3-L4: Demonstrates a moderate broad-based disc bulge with moderate posterior facet arthropathy probably contributes to [id number] spinal canal stenosis. There is follow moderate right greater than left neural foraminal encroachment. L4-L5: Demonstrates a moderate broad-based disc bulge and mild posterior facet arthropathy. There is probable mild right greater than left neural foraminal encroachment. L5-S1: No focal disc extrusion or protrusion. IMPRESSION: Ankylosis of both sacroiliac joints. Moderate diffuse broad-based disc changes with posterior facet arthropathy with varying degrees of spinal canal stenosis and neural foraminal encroachment. MRI would be more sensitive and specific for characterization if persistent symptoms persist. .
== END 2016-10-27 00:05 | disposition home or self-care (01) ==
LOC: ED 20:52
DX: M54.89 Other dorsalgia (principal); G89.29 Other chronic pain
CPT/HCPCS: 36415; 80053; 81003; 83690; 84484; 85025; 93005